=== PATIENT | male | born 1985 | race Two or more races ===

== ENCOUNTER 2021-04-09 12:21 | Inpatient (IN) | payer MEDICAID ==
[~2021-04-09] VITALS: Ht 172.7 cm; Wt 86.3 kg
[~2021-04-09 12:21] MED LIST: QUET100T PO
[2021-04-09] MEDS ORDERED: HALOPERIDOL LACTATE 5 MG/ML VIAL IM ONE (13:15)
[2021-04-09] MEDS ORDERED: LORazepam 2 MG/ML VIAL IM ONE (13:15)
[2021-04-09] MEDS ORDERED: DiphenhydrAMINE HCL 50 MG/ML VIAL IM ONE (13:15)
[2021-04-09] MEDS ORDERED: HydrOXYzine PAMOATE 50 MG CAPSULE PO PRN (14:00)
[2021-04-09] MEDS ORDERED: TUBERCULIN, PURIFIED PROTEIN DERIVATIVE 5 TU/0.1 ML SYRINGE ID ONE (14:00)
[2021-04-09] MEDS ORDERED: ACETAMINOPHEN 325 MG TABLET PO PRN (14:00)
[2021-04-09] MEDS ORDERED: OLANZapine 5 MG RAPDIS TABLET PO PRN (14:00)
[2021-04-09] MEDS ORDERED: LORazepam 2 MG TABLET PO PRN (14:00)
[2021-04-09] MEDS ORDERED: PALIPERIDONE PALMITATE 234 MG/1.5 ML SYRINGE IM ONE (14:00)
[2021-04-09] MEDS ORDERED: PROMETHAZINE HCL 25 MG TABLET PO PRN (14:00)
[2021-04-09] MEDS ORDERED: ZOLPIDEM TARTRATE 10 MG TABLET PO PRN (14:00)
[2021-04-09] MEDS ORDERED: LOPERAMIDE HCL 2 MG CAPSULE PO PRN (14:00)
[2021-04-09] MEDS ORDERED: GuaiFENesin/D-METHORPHAN [SUGAR-FREE] 200-20MG/10 ML SYRUP UDCUP PO PRN (14:00)
[2021-04-09] MEDS ORDERED: MAG HYDROX/AL HYDROX/SIMETH ES 30 ML SUSPENSION UDCUP PO PRN (14:00)
[2021-04-09] MEDS ORDERED: MAGNESIUM HYDROXIDE SUSPENSION 30 ML UDCUP PO PRN (14:00)
[2021-04-09 14:04] LABS: COVID AG,FIA SOURCE NASOPHARYNGEAL
[2021-04-09 15:30] LABS: BASOPHILS % (AUTO) 0.5 % (0.0-2.0); HEMATOCRIT 39.9 % (41-53); HEMOGLOBIN 12.9 g/dL (13.5-17.5); LYMPHOCYTES # (AUTO) 1.6 K/uL (1.0-4.8); LYMPHOCYTES % (AUTO) 24.7 % (22.0-44.0); MEAN CORPUSCULAR HGB CONC 32.4 G/dL (31.0-37.0); MEAN CORPUSCULAR VOLUME 86 fL (80-100); MONOCYTES # (AUTO) 0.4 K/uL (0.1-1.0); NEUTROPHILS # (AUTO) 4.3 K/uL (1.8-7.7); NEUTROPHILS % (AUTO) 66.8 % (40.0-70.0); PLATELET COUNT (AUTO) 306 K/uL (150-450); RED BLOOD CELL COUNT(AUTO) 4.62 MIL/uL (4.50-5.90); RED CELL DISTRIBUTION WIDTH 13.4 % (11.5-14.5)
[2021-04-09 15:40] LABS: ANION GAP 12 mmol/L (8-16); CALCIUM, TOTAL 8.4 mg/dL (8.8-10.5); CARBON DIOXIDE 24 mmol/L (22-29); CHLORIDE 107 mmol/L (98-107); CREATININE 0.72 mg/dL (0.60-1.30); GLOMERULAR FILTR. RATE CALC > 60 mL/min (>60); GLUCOSE,RANDOM 95 mg/dL (70-110); POTASSIUM 3.5 mmol/L (3.5-5.1); SODIUM SERUM 143 mmol/L (136-145); UREA NITROGEN, BLOOD 16 mg/dL (7-18)
[2021-04-09 15:46] LABS: ALANINE AMINOTRANSFERASE 29 U/L (12-78); ALBUMIN 3.7 g/dL (3.4-5.0); ALKALINE PHOSPHATASE 62 U/L (46-116); ASPARTATE AMINOTRANSFERASE 28 U/L (15-37); BILIRUBIN,TOTAL 1.2 mg/dL (0.1-1.0); TOTAL PROTEIN, SERUM 6.7 g/dL (6.4-8.2)
[2021-04-09] MEDS: THIAMINE 100 MG TABLET PO SCH (17:00)
[2021-04-09 19:01] VITALS: BP 117/84
[2021-04-09] MEDS ORDERED: OLANZapine 5 MG RAPDIS TABLET PO SCH (21:00)
[2021-04-09] MEDS: MELATONIN 5 MG TABLET PO SCH (22:14)
[2021-04-09] MEDS: DIVALPROEX SODIUM 500 MG ER TABLET PO SCH (22:14)
[2021-04-10] MEDS ORDERED: PALIPERIDONE PALMITATE 234 MG/1.5 ML SYRINGE IM ONE (09:00)
[2021-04-10] MEDS: NALTREXONE HCL 50 MG TABLET PO SCH (11:02)
[2021-04-10] MEDS: FOLIC ACID 1 MG TABLET PO SCH (11:05)
[2021-04-10] MEDS: THIAMINE 100 MG TABLET PO SCH ×2 (11:05→16:45)
[2021-04-10] MEDS: OMEGA-3/DHA/EPA/FISH OIL 1,000 MG CAPSULE PO SCH (11:05)
[2021-04-10] MEDS: MULTIVITAMINS WITH MINERALS, THERAPEUTIC TABLET PO SCH (11:06)
[2021-04-10] MEDS: MELATONIN 5 MG TABLET PO SCH (20:09)
[2021-04-10] MEDS: DIVALPROEX SODIUM 500 MG ER TABLET PO SCH (20:09)
[2021-04-11 07:36] LABS: CHOL/HDL RATIO 2.6 (4.2-7.3); FREE T4 (FREE THYROXINE) 1.09 ng/dL (0.76-1.46); THYROID STIMULATING HORMONE 0.36 uIU/mL (0.36-3.74)
[2021-04-11 08:32] VITALS: BP 162/82
[2021-04-11] MEDS: THIAMINE 100 MG TABLET PO SCH ×2 (10:11→16:26)
[2021-04-11] MEDS: MULTIVITAMINS WITH MINERALS, THERAPEUTIC TABLET PO SCH (10:11)
[2021-04-11] MEDS: OMEGA-3/DHA/EPA/FISH OIL 1,000 MG CAPSULE PO SCH (10:11)
[2021-04-11] MEDS: FOLIC ACID 1 MG TABLET PO SCH (10:11)
[2021-04-11] MEDS: NALTREXONE HCL 50 MG TABLET PO SCH (10:12)
[2021-04-11] MEDS: MELATONIN 5 MG TABLET PO SCH (20:23)
[2021-04-11] MEDS: DIVALPROEX SODIUM 500 MG ER TABLET PO SCH (20:24)
[2021-04-12] MEDS: NALTREXONE HCL 50 MG TABLET PO SCH (07:31)
[2021-04-12] MEDS: FOLIC ACID 1 MG TABLET PO SCH (07:31)
[2021-04-12] MEDS: OMEGA-3/DHA/EPA/FISH OIL 1,000 MG CAPSULE PO SCH (07:31)
[2021-04-12] MEDS: MULTIVITAMINS WITH MINERALS, THERAPEUTIC TABLET PO SCH (07:32)
[2021-04-12] MEDS: THIAMINE 100 MG TABLET PO SCH ×2 (07:32→16:09)
[2021-04-12 08:23] VITALS: BP 123/70
[2021-04-12] MEDS: DIVALPROEX SODIUM 500 MG ER TABLET PO SCH (21:00)
[2021-04-12] MEDS: MELATONIN 5 MG TABLET PO SCH (21:00)
[2021-04-13 08:26] VITALS: BP 113/65
[2021-04-13] MEDS: NALTREXONE HCL 50 MG TABLET PO SCH (09:00)
[2021-04-13] MEDS: THIAMINE 100 MG TABLET PO SCH (09:00)
[2021-04-13] MEDS: FOLIC ACID 1 MG TABLET PO SCH (09:00)
[2021-04-13] MEDS: OMEGA-3/DHA/EPA/FISH OIL 1,000 MG CAPSULE PO SCH (09:00)
[2021-04-13] MEDS: MULTIVITAMINS WITH MINERALS, THERAPEUTIC TABLET PO SCH (09:00)
[2021-04-13] MEDS ORDERED: OMEG-135 PO (09:53)
[2021-04-13] MEDS ORDERED: PALI117D IM (09:53)
[2021-04-13] MEDS ORDERED: DIVA-80 PO (09:53)
[2021-04-13] MEDS ORDERED: MELA5TAB40 PO (09:53)
[2021-04-13] MEDS ORDERED: NALT50TA PO (09:53)
[2021-04-13] MEDS ORDERED: PALIPERIDONE PALMITATE 156 MG/ML SYRINGE IM ONE (12:00)
[2021-04-14] MEDS ORDERED: PALIPERIDONE PALMITATE 156 MG/ML SYRINGE IM ONE (09:00)
== END 2021-04-13 14:20 | disposition home or self-care (01) | DRG 750 ==
LOC: EMS 12:21 → 3EC 15:19
PROVIDERS: ADMIT Psychiatry & Neurology Psychiatry; ATTEND Psychiatry & Neurology Psychiatry
DX: F20.0 Paranoid schizophrenia (principal); R45.850 Homicidal ideations; F12.10 Cannabis abuse, uncomplicated; Z20.822 Contact with and (suspected) exposure to COVID-19; F15.10 Other stimulant abuse, uncomplicated; F17.210 Nicotine dependence, cigarettes, uncomplicated; D64.9 Anemia, unspecified; J44.9 Chronic obstructive pulmonary disease, unspecified; Z55.9 Problems related to education and literacy, unspecified; Z59.9 Problem related to housing and economic circumstances, unspecified; Z91.19 Patient's noncompliance with other medical treatment and regimen; Z79.899 Other long term (current) drug therapy; Z65.3 Problems related to other legal circumstances; Z59.0 Homelessness
CPT/HCPCS: 80053; 80061; 80164; 84439; 84443; 85025; 87081; 99285; G0480; J1200; J1630; J2060; Q9967

== ENCOUNTER 2021-05-03 09:11 | Emergency (ER) | payer MEDICAID ==
[~2021-05-03] VITALS: Ht 175.3 cm; Wt 81.8 kg
[~2021-05-03 09:11] MED LIST changes: +DIVA-80 PO; +MELA5TAB40 PO; +NALT50TA PO; +OMEG-135 PO; +PALI117D IM; -QUET100T PO
[2021-05-03 09:38] LABS: COVID AG,FIA SOURCE NASOPHARYNGEAL
[2021-05-03 09:45] LABS: EOSINOPHILS % (AUTO) 1.8 % (1.0-6.0); HEMATOCRIT 42.2 % (41-53); LYMPHOCYTES # (AUTO) 1.4 K/uL (1.0-4.8); LYMPHOCYTES % (AUTO) 21.2 % (22.0-44.0); MEAN CORPUSCULAR HEMOGLOBIN 28.5 pg (26.0-34.0); MEAN CORPUSCULAR VOLUME 86 fL (80-100); MONOCYTES # (AUTO) 0.4 K/uL (0.1-1.0); MONOCYTES % (AUTO) 5.5 % (2.0-9.0); NEUTROPHILS # (AUTO) 4.7 K/uL (1.8-7.7); NEUTROPHILS % (AUTO) 70.5 % (40.0-70.0); PLATELET COUNT (AUTO) 383 K/uL (150-450); RED CELL DISTRIBUTION WIDTH 13.6 % (11.5-14.5)
[2021-05-03 09:53] LABS: ANION GAP 7 mmol/L (8-16); CALCIUM, TOTAL 8.6 mg/dL (8.8-10.5); CARBON DIOXIDE 30 mmol/L (22-29); CHLORIDE 103 mmol/L (98-107); CREATININE 0.92 mg/dL (0.60-1.30); GLOMERULAR FILTR. RATE CALC > 60 mL/min (>60); GLUCOSE,RANDOM 104 mg/dL (70-110); POTASSIUM 4.2 mmol/L (3.5-5.1); SODIUM SERUM 140 mmol/L (136-145); UREA NITROGEN, BLOOD 15 mg/dL (7-18)
[2021-05-03 09:59] LABS: ALANINE AMINOTRANSFERASE 28 U/L (12-78); ALBUMIN 3.9 g/dL (3.4-5.0); ALKALINE PHOSPHATASE 72 U/L (46-116); ASPARTATE AMINOTRANSFERASE 21 U/L (15-37); BILIRUBIN,TOTAL 1.2 mg/dL (0.1-1.0); TOTAL PROTEIN, SERUM 7.7 g/dL (6.4-8.2)
[2021-05-03 11:05] LABS: AMPHET/METH SCREEN,URINE POSITIVE (NEGATIVE); BARBITURATE SCREEN, URINE NEGATIVE (NEGATIVE); BENZODIAZEPINES SCREEN,URINE NEGATIVE (NEGATIVE); CANNABINOID SCREEN,URINE NEGATIVE (NEGATIVE); COCAINE SCREEN,URINE NEGATIVE (NEGATIVE); METHADONE SCREEN, URINE NEGATIVE (NEGATIVE); OPIATE SCREEN,URINE NEGATIVE (NEGATIVE); PHENCYCLIDINE SCREEN,URINE NEGATIVE (NEGATIVE)
[2021-05-03 11:58] VITALS: BP 122/68
== END 2021-05-03 12:12 | disposition home or self-care (01) ==
LOC: EMS 09:13
DX: F20.9 Schizophrenia, unspecified (principal); F15.10 Other stimulant abuse, uncomplicated; M25.511 Pain in right shoulder; F17.210 Nicotine dependence, cigarettes, uncomplicated; F14.90 Cocaine use, unspecified, uncomplicated; F19.90 Other psychoactive substance use, unspecified, uncomplicated; Z20.822 Contact with and (suspected) exposure to COVID-19
CPT/HCPCS: 36415; 73030; 80053; 80307; 85025; 87426; 99285; G0480

== ENCOUNTER 2021-07-01 22:34 | Emergency (ER) | payer MEDICAID ==
[~2021-07-01] VITALS: Ht 175.3 cm; Wt 86.4 kg
[2021-07-01 23:51] LABS: BASOPHILS % (AUTO) 0.7 % (0.0-2.0); EOSINOPHILS % (AUTO) 3.5 % (1.0-6.0); HEMATOCRIT 37.8 % (41-53); HEMOGLOBIN 12.9 g/dL (13.5-17.5); LYMPHOCYTES # (AUTO) 2.1 K/uL (1.0-4.8); LYMPHOCYTES % (AUTO) 34.8 % (22.0-44.0); MEAN CORPUSCULAR HEMOGLOBIN 28.5 pg (26.0-34.0); MEAN CORPUSCULAR HGB CONC 34.1 G/dL (31.0-37.0); MEAN CORPUSCULAR VOLUME 84 fL (80-100); MONOCYTES # (AUTO) 0.4 K/uL (0.1-1.0); NEUTROPHILS # (AUTO) 3.2 K/uL (1.8-7.7); PLATELET COUNT (AUTO) 367 K/uL (150-450); RED BLOOD CELL COUNT(AUTO) 4.53 MIL/uL (4.50-5.90); RED CELL DISTRIBUTION WIDTH 12.9 % (11.5-14.5)
[2021-07-02] LABS: ANION GAP 5 mmol/L (8-16); CALCIUM, TOTAL 8.7 mg/dL (8.8-10.5); CARBON DIOXIDE 29 mmol/L (22-29); CHLORIDE 107 mmol/L (98-107); CREATININE 0.88 mg/dL (0.60-1.30); GLOMERULAR FILTR. RATE CALC > 60 mL/min (>60); GLUCOSE,RANDOM 139 mg/dL (70-110); POTASSIUM 3.9 mmol/L (3.5-5.1); SODIUM SERUM 141 mmol/L (136-145); UREA NITROGEN, BLOOD 30 mg/dL (7-18)
[2021-07-02 00:06] LABS: ALANINE AMINOTRANSFERASE 22 U/L (12-78); ALBUMIN 3.6 g/dL (3.4-5.0); ALKALINE PHOSPHATASE 54 U/L (46-116); ASPARTATE AMINOTRANSFERASE 15 U/L (15-37); BILIRUBIN,TOTAL 0.8 mg/dL (0.1-1.0); TOTAL PROTEIN, SERUM 6.7 g/dL (6.4-8.2)
[2021-07-02 02:41] VITALS: BP 108/58
== END 2021-07-02 03:12 | disposition home or self-care (01) ==
LOC: EMS 22:36
DX: F19.10 Other psychoactive substance abuse, uncomplicated (principal); F17.210 Nicotine dependence, cigarettes, uncomplicated; F14.90 Cocaine use, unspecified, uncomplicated; F11.90 Opioid use, unspecified, uncomplicated; F15.90 Other stimulant use, unspecified, uncomplicated; F20.9 Schizophrenia, unspecified
CPT/HCPCS: 80053; 85025; 99285; G0480

== ENCOUNTER 2021-07-02 02:51 | Inpatient (IN) | payer MEDICAID ==
[~2021-07-02] VITALS: Ht 175.3 cm; Wt 80.0 kg
[2021-07-02] MEDS ORDERED: ZOLPIDEM TARTRATE 10 MG TABLET PO PRN (04:15)
[2021-07-02] MEDS ORDERED: MAGNESIUM HYDROXIDE SUSPENSION 30 ML UDCUP PO PRN (07:00)
[2021-07-02] MEDS ORDERED: ONDANSETRON HCL 4 MG TABLET PO PRN (07:00)
[2021-07-02] MEDS ORDERED: ALBUTEROL SULFATE HFA 90 MCG/PUFF 8 GM INHALER IH PRN (07:00)
[2021-07-02] MEDS ORDERED: GuaiFENesin/D-METHORPHAN [SUGAR-FREE] 200-20MG/10 ML SYRUP UDCUP PO PRN (07:00)
[2021-07-02] MEDS ORDERED: ACETAMINOPHEN 325 MG TABLET PO PRN (07:00)
[2021-07-02] MEDS ORDERED: PETROLATUM,WHITE 28 GM JELLY TP PRN (07:00)
[2021-07-02] MEDS ORDERED: IBUPROFEN 400 MG TABLET PO PRN (07:00)
[2021-07-02] MEDS ORDERED: LOPERAMIDE HCL 2 MG CAPSULE PO PRN (07:00)
[2021-07-02] MEDS ORDERED: MAG HYDROX/AL HYDROX/SIMETH ES 30 ML SUSPENSION UDCUP PO PRN (07:00)
[2021-07-02] MEDS ORDERED: CloNIDine HCL 0.1 MG TABLET PO PRN (07:00)
[2021-07-02] MEDS ORDERED: DOCUSATE SODIUM 100 MG CAPSULE PO PRN (07:00)
[2021-07-02 07:54] LABS: COVID AG,FIA SOURCE NASAL SWAB
[2021-07-02 08:08] LABS: APPEARANCE,URINE CLEAR (CLEAR); BILIRUBIN,URINE NEGATIVE (NEGATIVE); GLUCOSE, URINE (UA) NEGATIVE (NEGATIVE); KETONES,URINE NEGATIVE (NEGATIVE); LEUKOCYTE ESTERASE ,URINE NEGATIVE (NEGATIVE); NITRATE,URINE NEGATIVE (NEGATIVE); OCCULT BLOOD,URINE NEGATIVE (NEGATIVE); PROTEIN,URINE NEGATIVE (NEGATIVE); UROBILINOGEN,URINE 0.2 mg/dL (<=1.0)
[2021-07-02 11:51] LABS: AMPHET/METH SCREEN,URINE POSITIVE (NEGATIVE); BARBITURATE SCREEN, URINE NEGATIVE (NEGATIVE); BENZODIAZEPINES SCREEN,URINE NEGATIVE (NEGATIVE); CANNABINOID SCREEN,URINE NEGATIVE (NEGATIVE); COCAINE SCREEN,URINE NEGATIVE (NEGATIVE); METHADONE SCREEN, URINE NEGATIVE (NEGATIVE); OPIATE SCREEN,URINE NEGATIVE (NEGATIVE)
[2021-07-02 11:52] LABS: PHENCYCLIDINE SCREEN,URINE NEGATIVE (NEGATIVE)
[2021-07-02] MEDS: HALOPERIDOL 5 MG TABLET PO PRN (18:25)
[2021-07-02] MEDS: LORazepam 2 MG TABLET PO PRN (18:25)
[2021-07-02 19:04] VITALS: BP 127/77
[2021-07-02] MEDS: OMEGA-3/DHA/EPA/FISH OIL 1,000 MG CAPSULE PO SCH (19:40)
[2021-07-02] MEDS ORDERED: INFLUENZA VIRUS VACCINE QVS 2021-22 (6MO+)/PF 60 MCG/0.5 ML SYRINGE IM. ONE (20:00)
[2021-07-02] MEDS: MELATONIN 5 MG TABLET PO SCH (20:20)
[2021-07-03 06:48] LABS: CHOL/HDL RATIO 2.9 (4.2-7.3)
[2021-07-03] MEDS: OMEGA-3/DHA/EPA/FISH OIL 1,000 MG CAPSULE PO SCH (09:14)
[2021-07-03] MEDS: NALTREXONE HCL 50 MG TABLET PO SCH (11:00)
[2021-07-03] MEDS: DIVALPROEX SODIUM 500 MG ER TABLET PO SCH ×2 (11:00→20:53)
[2021-07-03] MEDS: RisperiDONE 2 MG TABLET PO SCH ×2 (11:00→16:41)
[2021-07-03] MEDS: MELATONIN 5 MG TABLET PO SCH (20:53)
[2021-07-04 08:32] VITALS: BP 123/65
[2021-07-04] MEDS: DIVALPROEX SODIUM 500 MG ER TABLET PO SCH ×2 (09:00→20:50)
[2021-07-04] MEDS: NALTREXONE HCL 50 MG TABLET PO SCH (09:00)
[2021-07-04] MEDS: RisperiDONE 2 MG TABLET PO SCH ×2 (09:00→16:23)
[2021-07-04] MEDS: OMEGA-3/DHA/EPA/FISH OIL 1,000 MG CAPSULE PO SCH (09:30)
[2021-07-04] MEDS: LORazepam 2 MG TABLET PO PRN ×2 (09:30→16:23)
[2021-07-04] MEDS: MELATONIN 5 MG TABLET PO SCH (20:50)
[2021-07-05 08:57] VITALS: BP 105/68
[2021-07-05] MEDS: NALTREXONE HCL 50 MG TABLET PO SCH (09:00)
[2021-07-05] MEDS: RisperiDONE 2 MG TABLET PO SCH ×2 (09:00→17:00)
[2021-07-05] MEDS: DIVALPROEX SODIUM 500 MG ER TABLET PO SCH ×2 (09:00→21:00)
[2021-07-05] MEDS: OMEGA-3/DHA/EPA/FISH OIL 1,000 MG CAPSULE PO SCH (11:14)
[2021-07-05] MEDS: LORazepam 2 MG TABLET PO PRN ×2 (14:03→20:41)
[2021-07-05 20:41] VITALS: BP 115/67
[2021-07-05] MEDS: MELATONIN 5 MG TABLET PO SCH (21:00)
[2021-07-06] MEDS: DIVALPROEX SODIUM 500 MG ER TABLET PO SCH ×4 (08:38→21:00)
[2021-07-06] MEDS: OMEGA-3/DHA/EPA/FISH OIL 1,000 MG CAPSULE PO SCH ×2 (08:38→11:34)
[2021-07-06] MEDS: RisperiDONE 2 MG TABLET PO SCH ×3 (08:38→17:19)
[2021-07-06] MEDS: NALTREXONE HCL 50 MG TABLET PO SCH ×2 (08:38→11:34)
[2021-07-06 09:39] VITALS: BP 94/68
[2021-07-06] MEDS: NICOTINE 14 MG/24 HOUR PATCH TD PRN (11:34)
[2021-07-06] MEDS: LORazepam 2 MG TABLET PO PRN (11:35)
[2021-07-06 16:21] VITALS: BP 123/76
[2021-07-06] MEDS: MELATONIN 5 MG TABLET PO SCH (21:00)
[2021-07-07] MEDS: LORazepam 2 MG TABLET PO PRN ×2 (07:40→17:25)
[2021-07-07] MEDS: HALOPERIDOL 5 MG TABLET PO PRN (07:40)
[2021-07-07 08:00] VITALS: BP 123/74
[2021-07-07] MEDS: NALTREXONE HCL 50 MG TABLET PO SCH (08:21)
[2021-07-07] MEDS: DIVALPROEX SODIUM 500 MG ER TABLET PO SCH ×2 (08:21→20:14)
[2021-07-07] MEDS: OMEGA-3/DHA/EPA/FISH OIL 1,000 MG CAPSULE PO SCH (08:21)
[2021-07-07] MEDS: RisperiDONE 2 MG TABLET PO SCH ×2 (08:21→16:17)
[2021-07-07] MEDS: NICOTINE 14 MG/24 HOUR PATCH TD PRN (08:22)
[2021-07-07 16:41] VITALS: BP 120/75
[2021-07-07] MEDS: MELATONIN 5 MG TABLET PO SCH (20:13)
[2021-07-08 08:00] LABS: COVID AG,FIA SOURCE NASAL SWAB
[2021-07-08 08:36] VITALS: BP 144/90
[2021-07-08] MEDS: LORazepam 2 MG TABLET PO PRN ×2 (08:38→18:37)
[2021-07-08] MEDS: DIVALPROEX SODIUM 500 MG ER TABLET PO SCH ×2 (08:38→20:50)
[2021-07-08] MEDS: OMEGA-3/DHA/EPA/FISH OIL 1,000 MG CAPSULE PO SCH (08:38)
[2021-07-08] MEDS: NALTREXONE HCL 50 MG TABLET PO SCH (08:39)
[2021-07-08] MEDS: RisperiDONE 2 MG TABLET PO SCH ×2 (08:39→16:22)
[2021-07-08 16:00] VITALS: BP 115/65
[2021-07-08] MEDS: MELATONIN 5 MG TABLET PO SCH (20:50)
[2021-07-09] MEDS: HALOPERIDOL 5 MG TABLET PO PRN ×2 (07:55→13:13)
[2021-07-09] MEDS: OMEGA-3/DHA/EPA/FISH OIL 1,000 MG CAPSULE PO SCH (07:55)
[2021-07-09] MEDS: DIVALPROEX SODIUM 500 MG ER TABLET PO SCH (07:55)
[2021-07-09] MEDS: NALTREXONE HCL 50 MG TABLET PO SCH (07:56)
[2021-07-09] MEDS: LORazepam 2 MG TABLET PO PRN ×2 (07:56→13:13)
[2021-07-09] MEDS: RisperiDONE 2 MG TABLET PO SCH (07:56)
[2021-07-09] MEDS ORDERED: DIVA-80 PO ×2 (11:31)
[2021-07-09] MEDS ORDERED: RISP2TAB45 PO (11:32)
== END 2021-07-09 14:05 | disposition home or self-care (01) | DRG 750 ==
LOC: EMS 02:53 → 3EC 17:09
PROVIDERS: ADMIT Psychiatry & Neurology Child & Adolescent Psychiatry; ATTEND Psychiatry & Neurology Child & Adolescent Psychiatry
DX: F25.0 Schizoaffective disorder, bipolar type (principal); E86.0 Dehydration; F15.10 Other stimulant abuse, uncomplicated; F17.210 Nicotine dependence, cigarettes, uncomplicated; F41.9 Anxiety disorder, unspecified; Z91.19 Patient's noncompliance with other medical treatment and regimen
CPT/HCPCS: 80061; 81003; 99285; Q9967

== ENCOUNTER 2021-07-13 00:56 | Inpatient (IN) | payer MEDICAID ==
[~2021-07-13] VITALS: Ht 175.3 cm; Wt 75.3 kg
[~2021-07-13 00:56] MED LIST changes: -OMEG-135 PO; -PALI117D IM; +RISP2TAB45 PO
[2021-07-13] MEDS ORDERED: LORazepam 2 MG TABLET PO PRN (02:15)
[2021-07-13] MEDS ORDERED: HALOPERIDOL 5 MG TABLET PO PRN (02:15)
[2021-07-13] MEDS ORDERED: ZOLPIDEM TARTRATE 10 MG TABLET PO PRN (02:15)
[2021-07-13 03:21] LABS: COVID AG,FIA SOURCE NASOPHARYNGEAL
[2021-07-13 03:25] LABS: BASOPHILS % (AUTO) 0.7 % (0.0-2.0); EOSINOPHILS % (AUTO) 2.1 % (1.0-6.0); HEMATOCRIT 39.5 % (41-53); HEMOGLOBIN 13.4 g/dL (13.5-17.5); LYMPHOCYTES # (AUTO) 1.8 K/uL (1.0-4.8); LYMPHOCYTES % (AUTO) 24.8 % (22.0-44.0); MEAN CORPUSCULAR HEMOGLOBIN 28.4 pg (26.0-34.0); MEAN CORPUSCULAR HGB CONC 33.9 G/dL (31.0-37.0); MEAN CORPUSCULAR VOLUME 84 fL (80-100); MONOCYTES # (AUTO) 0.5 K/uL (0.1-1.0); MONOCYTES % (AUTO) 7.6 % (2.0-9.0); NEUTROPHILS # (AUTO) 4.7 K/uL (1.8-7.7); NEUTROPHILS % (AUTO) 64.8 % (40.0-70.0); PLATELET COUNT (AUTO) 304 K/uL (150-450); RED CELL DISTRIBUTION WIDTH 13.1 % (11.5-14.5)
[2021-07-13 03:28] LABS: APPEARANCE,URINE CLEAR (CLEAR); BILIRUBIN,URINE NEGATIVE (NEGATIVE); GLUCOSE, URINE (UA) NEGATIVE (NEGATIVE); KETONES,URINE TRACE mg/dL (NEGATIVE); LEUKOCYTE ESTERASE ,URINE NEGATIVE (NEGATIVE); NITRATE,URINE NEGATIVE (NEGATIVE); OCCULT BLOOD,URINE NEGATIVE (NEGATIVE); PH,URINE 6.5 (5.0-8.0); PROTEIN,URINE NEGATIVE (NEGATIVE)
[2021-07-13 03:33] LABS: AMPHET/METH SCREEN,URINE POSITIVE (NEGATIVE); BARBITURATE SCREEN, URINE NEGATIVE (NEGATIVE); BENZODIAZEPINES SCREEN,URINE NEGATIVE (NEGATIVE); CANNABINOID SCREEN,URINE NEGATIVE (NEGATIVE); COCAINE SCREEN,URINE NEGATIVE (NEGATIVE); METHADONE SCREEN, URINE NEGATIVE (NEGATIVE); OPIATE SCREEN,URINE NEGATIVE (NEGATIVE)
[2021-07-13 03:34] LABS: PHENCYCLIDINE SCREEN,URINE NEGATIVE (NEGATIVE)
[2021-07-13 03:34] LABS: ANION GAP 7 mmol/L (8-16); CALCIUM, TOTAL 9.1 mg/dL (8.8-10.5); CARBON DIOXIDE 31 mmol/L (22-29); CHLORIDE 105 mmol/L (98-107); CREATININE 0.97 mg/dL (0.60-1.30); GLOMERULAR FILTR. RATE CALC > 60 mL/min (>60); GLUCOSE,RANDOM 112 mg/dL (70-110); SODIUM SERUM 143 mmol/L (136-145); UREA NITROGEN, BLOOD 26 mg/dL (7-18)
[2021-07-13 03:39] LABS: ALANINE AMINOTRANSFERASE 26 U/L (12-78); ALKALINE PHOSPHATASE 66 U/L (46-116); ASPARTATE AMINOTRANSFERASE 21 U/L (15-37); TOTAL PROTEIN, SERUM 7.4 g/dL (6.4-8.2)
[2021-07-13] MEDS ORDERED: ALBUTEROL SULFATE HFA 90 MCG/PUFF 8 GM INHALER IH PRN (09:45)
[2021-07-13] MEDS ORDERED: DOCUSATE SODIUM 100 MG CAPSULE PO PRN (09:45)
[2021-07-13] MEDS ORDERED: MAGNESIUM HYDROXIDE SUSPENSION 30 ML UDCUP PO PRN (09:45)
[2021-07-13] MEDS ORDERED: GuaiFENesin/D-METHORPHAN [SUGAR-FREE] 200-20MG/10 ML SYRUP UDCUP PO PRN (09:45)
[2021-07-13] MEDS ORDERED: IBUPROFEN 400 MG TABLET PO PRN (09:45)
[2021-07-13] MEDS ORDERED: LOPERAMIDE HCL 2 MG CAPSULE PO PRN (09:45)
[2021-07-13] MEDS ORDERED: CloNIDine HCL 0.1 MG TABLET PO PRN (09:45)
[2021-07-13] MEDS ORDERED: ONDANSETRON HCL 4 MG TABLET PO PRN (09:45)
[2021-07-13] MEDS ORDERED: MAG HYDROX/AL HYDROX/SIMETH ES 30 ML SUSPENSION UDCUP PO PRN (09:45)
[2021-07-13] MEDS ORDERED: NICOTINE 14 MG/24 HOUR PATCH TD PRN (09:45)
[2021-07-13] MEDS ORDERED: PETROLATUM,WHITE 28 GM JELLY TP PRN (09:45)
[2021-07-13] MEDS ORDERED: ACETAMINOPHEN 325 MG TABLET PO PRN (09:45)
[2021-07-13 14:07] VITALS: BP 131/66
[2021-07-13 16:03] VITALS: BP 126/62
[2021-07-13] MEDS: RisperiDONE 2 MG TABLET PO SCH (16:31)
[2021-07-13] MEDS: MELATONIN 5 MG TABLET PO SCH (20:44)
[2021-07-13] MEDS: DIVALPROEX SODIUM 500 MG DR TABLET PO SCH (20:45)
[2021-07-14 04:02] VITALS: BP 124/68
[2021-07-14 07:55] LABS: CHOL/HDL RATIO 2.7 (4.2-7.3)
[2021-07-14 08:01] VITALS: BP 108/62
[2021-07-14] MEDS: NALTREXONE HCL 50 MG TABLET PO SCH (08:52)
[2021-07-14] MEDS: DIVALPROEX SODIUM 500 MG DR TABLET PO SCH ×2 (08:53→20:37)
[2021-07-14] MEDS: RisperiDONE 2 MG TABLET PO SCH ×2 (08:53→16:18)
[2021-07-14] MEDS ORDERED: DIVALPROEX SODIUM 500 MG DR TABLET PO SCH (09:00)
[2021-07-14] MEDS: MELATONIN 5 MG TABLET PO SCH (20:38)
[2021-07-15 01:13] VITALS: BP 148/94
[2021-07-15 08:00] VITALS: BP 117/64
[2021-07-15 08:02] LABS: HEMOGLOBIN A1C 5.8 % (3.8-5.6)
[2021-07-15] MEDS: DIVALPROEX SODIUM 500 MG DR TABLET PO SCH ×2 (08:29→21:00)
[2021-07-15] MEDS: RisperiDONE 2 MG TABLET PO SCH ×2 (08:30→16:58)
[2021-07-15] MEDS: NALTREXONE HCL 50 MG TABLET PO SCH (08:30)
[2021-07-15 09:57] LABS: THYROID STIMULATING HORMONE 0.74 uIU/mL (0.36-3.74)
[2021-07-15 16:17] VITALS: BP 115/65
[2021-07-15] MEDS: MELATONIN 5 MG TABLET PO SCH (21:00)
[2021-07-16 01:44] VITALS: BP 117/79
[2021-07-16 08:13] VITALS: BP 113/75
[2021-07-16] MEDS: NALTREXONE HCL 50 MG TABLET PO SCH (09:00)
[2021-07-16] MEDS: RisperiDONE 2 MG TABLET PO SCH (09:00)
[2021-07-16] MEDS: DIVALPROEX SODIUM 500 MG DR TABLET PO SCH (09:00)
== END 2021-07-16 13:20 | disposition left against medical advice (07) | DRG 750 ==
LOC: EMS 00:57 → B2S 05:01
PROVIDERS: ADMIT Psychiatry & Neurology Child & Adolescent Psychiatry; ATTEND Psychiatry & Neurology Child & Adolescent Psychiatry
DX: F20.9 Schizophrenia, unspecified (principal); R45.851 Suicidal ideations; F10.10 Alcohol abuse, uncomplicated; F17.210 Nicotine dependence, cigarettes, uncomplicated; R03.0 Elevated blood-pressure reading, without diagnosis of hypertension; K59.00 Constipation, unspecified; D64.9 Anemia, unspecified; Z53.29 Procedure and treatment not carried out because of patient's decision for other reasons; Z20.822 Contact with and (suspected) exposure to COVID-19; F15.10 Other stimulant abuse, uncomplicated; Z71.41 Alcohol abuse counseling and surveillance of alcoholic; Z71.51 Drug abuse counseling and surveillance of drug abuser; Z91.51 Personal history of suicidal behavior; Z79.899 Other long term (current) drug therapy
CPT/HCPCS: 80053; 80061; 81003; 83036; 84443; 85025; 87081; 99285; G0480; Q9967

== ENCOUNTER 2021-08-29 08:11 | Inpatient (IN) | payer MEDICAID ==
[~2021-08-29] VITALS: Ht 177.8 cm; Wt 84.1 kg
[2021-08-29] MEDS ORDERED: LORazepam 2 MG/ML VIAL IM ONE (08:30)
[2021-08-29] MEDS ORDERED: HALOPERIDOL LACTATE 5 MG/ML VIAL IM ONE (08:30)
[2021-08-29] MEDS ORDERED: DiphenhydrAMINE HCL 50 MG/ML VIAL IM ONE (08:30)
[2021-08-29 08:52] LABS: COVID AG,FIA SOURCE NASOPHARYNGEAL
[2021-08-29 09:05] LABS: AMPHET/METH SCREEN,URINE POSITIVE (NEGATIVE); BARBITURATE SCREEN, URINE NEGATIVE (NEGATIVE); BENZODIAZEPINES SCREEN,URINE NEGATIVE (NEGATIVE); CANNABINOID SCREEN,URINE NEGATIVE (NEGATIVE); COCAINE SCREEN,URINE NEGATIVE (NEGATIVE); METHADONE SCREEN, URINE NEGATIVE (NEGATIVE); OPIATE SCREEN,URINE NEGATIVE (NEGATIVE)
[2021-08-29 09:08] LABS: PHENCYCLIDINE SCREEN,URINE NEGATIVE (NEGATIVE)
[2021-08-29 09:27] LABS: BASOPHILS % (AUTO) 0.6 % (0.0-2.0); EOSINOPHILS % (AUTO) 1.4 % (1.0-6.0); LYMPHOCYTES # (AUTO) 1.2 K/uL (1.0-4.8); LYMPHOCYTES % (AUTO) 22.8 % (22.0-44.0); MEAN CORPUSCULAR HEMOGLOBIN 28.1 pg (26.0-34.0); MEAN CORPUSCULAR HGB CONC 33.3 G/dL (31.0-37.0); MEAN CORPUSCULAR VOLUME 84 fL (80-100); MONOCYTES # (AUTO) 0.4 K/uL (0.1-1.0); MONOCYTES % (AUTO) 7.1 % (2.0-9.0); NEUTROPHILS # (AUTO) 3.5 K/uL (1.8-7.7); NEUTROPHILS % (AUTO) 68.1 % (40.0-70.0); PLATELET COUNT (AUTO) 332 K/uL (150-450); RED BLOOD CELL COUNT(AUTO) 4.63 MIL/uL (4.50-5.90); RED CELL DISTRIBUTION WIDTH 14.1 % (11.5-14.5)
[2021-08-29 09:38] LABS: ANION GAP 7 mmol/L (8-16); CALCIUM, TOTAL 8.5 mg/dL (8.8-10.5); CARBON DIOXIDE 27 mmol/L (22-29); CHLORIDE 104 mmol/L (98-107); CREATININE 0.87 mg/dL (0.60-1.30); GLOMERULAR FILTR. RATE CALC > 60 mL/min (>60); GLUCOSE,RANDOM 116 mg/dL (70-110); POTASSIUM 3.9 mmol/L (3.5-5.1); SODIUM SERUM 138 mmol/L (136-145); UREA NITROGEN, BLOOD 24 mg/dL (7-18)
[2021-08-29 09:43] LABS: ALANINE AMINOTRANSFERASE 27 U/L (12-78); ALBUMIN 3.7 g/dL (3.4-5.0); ALKALINE PHOSPHATASE 60 U/L (46-116); ASPARTATE AMINOTRANSFERASE 27 U/L (15-37); BILIRUBIN,TOTAL 0.7 mg/dL (0.1-1.0); TOTAL PROTEIN, SERUM 7.2 g/dL (6.4-8.2)
[2021-08-29] MEDS ORDERED: LORazepam 2 MG TABLET PO PRN (12:00)
[2021-08-29] MEDS ORDERED: ZOLPIDEM TARTRATE 10 MG TABLET PO PRN (12:00)
[2021-08-29] MEDS ORDERED: HALOPERIDOL 5 MG TABLET PO PRN (12:00)
[2021-08-29 14:29] VITALS: BP 131/87
[2021-08-29] MEDS ORDERED: CloNIDine HCL 0.1 MG TABLET PO PRN (14:45)
[2021-08-29] MEDS ORDERED: BENZOCAINE/MENTHOL LOZENGE PO PRN (14:45)
[2021-08-29] MEDS ORDERED: MAGNESIUM HYDROXIDE SUSPENSION 30 ML UDCUP PO PRN (14:45)
[2021-08-29] MEDS ORDERED: PETROLATUM,WHITE 28 GM JELLY TP PRN (14:45)
[2021-08-29] MEDS ORDERED: BACITRACIN 28 GM OINTMENT TP PRN (14:45)
[2021-08-29] MEDS ORDERED: ALBUTEROL SULFATE HFA 90 MCG/PUFF 8 GM INHALER IH PRN (14:45)
[2021-08-29] MEDS ORDERED: MAG HYDROX/AL HYDROX/SIMETH ES 30 ML SUSPENSION UDCUP PO PRN (14:45)
[2021-08-29] MEDS ORDERED: OMEPRAZOLE 20 MG CAPSULE PO PRN (14:45)
[2021-08-29] MEDS ORDERED: ONDANSETRON HCL 4 MG TABLET PO PRN (14:45)
[2021-08-29] MEDS ORDERED: ACETAMINOPHEN 325 MG TABLET PO PRN (14:45)
[2021-08-29] MEDS ORDERED: LOPERAMIDE HCL 2 MG CAPSULE PO PRN (14:45)
[2021-08-29] MEDS ORDERED: IBUPROFEN 600 MG TABLET PO PRN (14:45)
[2021-08-29] MEDS ORDERED: DOCUSATE SODIUM 100 MG CAPSULE PO PRN (14:45)
[2021-08-30 09:40] VITALS: BP 110/73
[2021-08-30 16:07] VITALS: BP 124/73
[2021-08-30] MEDS: RisperiDONE 2 MG TABLET PO SCH (16:51)
[2021-08-30] MEDS: DIVALPROEX SODIUM 500 MG ER TABLET PO SCH (16:51)
[2021-08-31 08:23] VITALS: BP 126/75
[2021-08-31] MEDS: RisperiDONE 2 MG TABLET PO SCH ×2 (09:00→16:30)
[2021-08-31] MEDS: DIVALPROEX SODIUM 500 MG ER TABLET PO SCH ×2 (09:00→16:30)
[2021-08-31 16:16] VITALS: BP 114/68
[2021-09-01 01:11] VITALS: BP 117/82
[2021-09-01] MEDS: DIVALPROEX SODIUM 500 MG ER TABLET PO SCH (08:52)
[2021-09-01] MEDS: RisperiDONE 2 MG TABLET PO SCH (08:52)
[2021-09-01 08:58] VITALS: BP 123/73
[2021-09-01] MEDS ORDERED: DIVA-80 PO (10:37)
[2021-09-01] MEDS ORDERED: RISP2TAB86 PO (10:37)
== END 2021-09-01 13:49 | disposition home or self-care (01) | DRG 750 ==
LOC: EMS 08:16 → B2S 13:16
PROVIDERS: ADMIT Psychiatry & Neurology Psychiatry; ATTEND Psychiatry & Neurology Psychiatry
DX: F20.0 Paranoid schizophrenia (principal); F19.10 Other psychoactive substance abuse, uncomplicated; G47.00 Insomnia, unspecified; Z20.822 Contact with and (suspected) exposure to COVID-19; F31.9 Bipolar disorder, unspecified; K59.00 Constipation, unspecified; Z72.0 Tobacco use; Z71.6 Tobacco abuse counseling
CPT/HCPCS: 80053; 85025; 99291; G0480; J1200; J1630; J2060

== ENCOUNTER 2021-09-14 12:29 | Inpatient (IN) | payer MEDICAID ==
[~2021-09-14] VITALS: Ht 170.2 cm; Wt 79.5 kg
[~2021-09-14 12:29] MED LIST changes: -MELA5TAB40 PO; -NALT50TA PO; -RISP2TAB45 PO; +RISP2TAB86 PO
[2021-09-14] MEDS ORDERED: ZOLPIDEM TARTRATE 10 MG TABLET PO PRN (13:30)
[2021-09-14] MEDS ORDERED: HALOPERIDOL 5 MG TABLET PO PRN (13:30)
[2021-09-14] MEDS ORDERED: LORazepam 2 MG TABLET PO PRN (13:30)
[2021-09-14] MEDS: DiphenhydrAMINE HCL 50 MG/ML VIAL IM ONE ×2 (13:45→14:30)
[2021-09-14] MEDS: LORazepam 2 MG/ML VIAL IM ONE ×2 (13:45→14:30)
[2021-09-14] MEDS: HALOPERIDOL LACTATE 5 MG/ML VIAL IM ONE ×2 (13:45→14:30)
[2021-09-14 14:10] LABS: BASOPHILS % (AUTO) 0.5 % (0.0-2.0); EOSINOPHILS % (AUTO) 1.2 % (1.0-6.0); HEMATOCRIT 38.9 % (41-53); HEMOGLOBIN 13.1 g/dL (13.5-17.5); LYMPHOCYTES # (AUTO) 1.5 K/uL (1.0-4.8); LYMPHOCYTES % (AUTO) 22.6 % (22.0-44.0); MEAN CORPUSCULAR HEMOGLOBIN 28.4 pg (26.0-34.0); MEAN CORPUSCULAR HGB CONC 33.5 G/dL (31.0-37.0); MEAN CORPUSCULAR VOLUME 85 fL (80-100); MONOCYTES # (AUTO) 0.5 K/uL (0.1-1.0); MONOCYTES % (AUTO) 7.5 % (2.0-9.0); NEUTROPHILS # (AUTO) 4.6 K/uL (1.8-7.7); NEUTROPHILS % (AUTO) 68.2 % (40.0-70.0); PLATELET COUNT (AUTO) 317 K/uL (150-450); RED CELL DISTRIBUTION WIDTH 13.3 % (11.5-14.5)
[2021-09-14 14:23] LABS: ANION GAP 12 mmol/L (8-16); CALCIUM, TOTAL 8.8 mg/dL (8.8-10.5); CARBON DIOXIDE 23 mmol/L (22-29); CHLORIDE 106 mmol/L (98-107); CREATININE 0.88 mg/dL (0.60-1.30); GLOMERULAR FILTR. RATE CALC > 60 mL/min (>60); GLUCOSE,RANDOM 97 mg/dL (70-110); POTASSIUM 3.8 mmol/L (3.5-5.1); SODIUM SERUM 141 mmol/L (136-145); UREA NITROGEN, BLOOD 23 mg/dL (7-18)
[2021-09-14 14:29] LABS: ALANINE AMINOTRANSFERASE 32 U/L (12-78); ALKALINE PHOSPHATASE 61 U/L (46-116); ASPARTATE AMINOTRANSFERASE 37 U/L (15-37); BILIRUBIN,TOTAL 1.1 mg/dL (0.1-1.0); TOTAL PROTEIN, SERUM 7.4 g/dL (6.4-8.2)
[2021-09-14 15:38] LABS: COVID AG,FIA SOURCE NASOPHARYNGEAL
[2021-09-14 17:45] VITALS: BP 134/96
[2021-09-15 00:06] VITALS: BP 118/67
[2021-09-15 08:25] VITALS: BP 101/65
[2021-09-15] MEDS ORDERED: LORazepam 2 MG/ML VIAL ONE ×2 (11:59→12:00)
[2021-09-15] MEDS ORDERED: HALOPERIDOL LACTATE 5 MG/ML VIAL ONE (12:01)
[2021-09-15] MEDS ORDERED: DiphenhydrAMINE HCL 50 MG/ML VIAL ONE (12:02)
[2021-09-15 16:01] VITALS: BP 138/72
[2021-09-15] MEDS: DIVALPROEX SODIUM 500 MG DR TABLET PO SCH (17:00)
[2021-09-15] MEDS: RisperiDONE 3 MG TABLET PO SCH (17:00)
[2021-09-15] MEDS ORDERED: MAG HYDROX/AL HYDROX/SIMETH ES 30 ML SUSPENSION UDCUP PO PRN (18:15)
[2021-09-15] MEDS ORDERED: ACETAMINOPHEN 325 MG TABLET PO PRN (18:15)
[2021-09-15] MEDS ORDERED: ONDANSETRON HCL 4 MG TABLET PO PRN (18:15)
[2021-09-15] MEDS ORDERED: MAGNESIUM HYDROXIDE SUSPENSION 30 ML UDCUP PO PRN (18:15)
[2021-09-15] MEDS ORDERED: DOCUSATE SODIUM 100 MG CAPSULE PO PRN (18:15)
[2021-09-15] MEDS ORDERED: CloNIDine HCL 0.1 MG TABLET PO PRN (18:15)
[2021-09-15] MEDS ORDERED: OMEPRAZOLE 20 MG CAPSULE PO PRN (18:15)
[2021-09-15] MEDS ORDERED: BENZOCAINE/MENTHOL LOZENGE PO PRN (18:15)
[2021-09-15] MEDS ORDERED: LOPERAMIDE HCL 2 MG CAPSULE PO PRN (18:15)
[2021-09-15] MEDS ORDERED: ALBUTEROL SULFATE HFA 90 MCG/PUFF 8 GM INHALER IH PRN (18:15)
[2021-09-15] MEDS ORDERED: BACITRACIN 28 GM OINTMENT TP PRN (18:15)
[2021-09-15] MEDS ORDERED: PETROLATUM,WHITE 28 GM JELLY TP PRN (18:15)
[2021-09-15] MEDS ORDERED: IBUPROFEN 600 MG TABLET PO PRN (18:15)
[2021-09-16 03:17] VITALS: BP 131/68
[2021-09-16 08:20] VITALS: BP 128/65
[2021-09-16] MEDS: RisperiDONE 3 MG TABLET PO SCH ×2 (08:31→16:55)
[2021-09-16] MEDS: DIVALPROEX SODIUM 500 MG DR TABLET PO SCH ×2 (08:31→16:55)
[2021-09-16 16:10] VITALS: BP 116/72
[2021-09-17 05:30] VITALS: BP 114/62
[2021-09-17] MEDS: RisperiDONE 3 MG TABLET PO SCH ×2 (09:00→16:55)
[2021-09-17] MEDS: DIVALPROEX SODIUM 500 MG DR TABLET PO SCH ×2 (09:00→16:55)
[2021-09-17 17:00] VITALS: BP 114/76
[2021-09-18 08:00] VITALS: BP 116/72
[2021-09-18] MEDS: RisperiDONE 3 MG TABLET PO SCH ×2 (08:08→17:00)
[2021-09-18] MEDS: DIVALPROEX SODIUM 500 MG DR TABLET PO SCH ×2 (08:08→17:00)
[2021-09-18 16:26] VITALS: BP 118/73
[2021-09-19 04:16] VITALS: BP 119/78
[2021-09-19] MEDS: RisperiDONE 3 MG TABLET PO SCH ×2 (08:22→16:56)
[2021-09-19] MEDS: DIVALPROEX SODIUM 500 MG DR TABLET PO SCH ×2 (08:22→16:55)
[2021-09-19 09:55] VITALS: BP 120/76
[2021-09-19 16:05] VITALS: BP 111/68
[2021-09-19] MEDS ORDERED: DIVA-112 PO (16:56)
[2021-09-19] MEDS ORDERED: RISP3TAB63 PO (16:56)
== END 2021-09-19 17:23 | disposition home or self-care (01) | DRG 750 ==
LOC: EMS 12:29 → B3A 16:22
PROVIDERS: ADMIT Psychiatry & Neurology Psychiatry; ATTEND Psychiatry & Neurology Psychiatry
DX: F25.9 Schizoaffective disorder, unspecified (principal); Z91.14 Patient's other noncompliance with medication regimen; F10.10 Alcohol abuse, uncomplicated; F12.10 Cannabis abuse, uncomplicated; F32.A Depression, unspecified; F41.9 Anxiety disorder, unspecified; G47.00 Insomnia, unspecified; K59.00 Constipation, unspecified; Z71.6 Tobacco abuse counseling; Z72.0 Tobacco use
CPT/HCPCS: 80053; 85025; 87081; 99285; G0480; J1200; J1630; J2060

== ENCOUNTER 2021-10-01 19:29 | Emergency (ER) | payer MEDICAID ==
[~2021-10-01] VITALS: Ht 177.8 cm; Wt 86.4 kg
[2021-10-01 20:13] LABS: BASOPHILS % (AUTO) 0.5 % (0.0-2.0); EOSINOPHILS % (AUTO) 1.1 % (1.0-6.0); HEMOGLOBIN 12.7 g/dL (13.5-17.5); LYMPHOCYTES # (AUTO) 1.3 K/uL (1.0-4.8); LYMPHOCYTES % (AUTO) 14.9 % (22.0-44.0); MEAN CORPUSCULAR HEMOGLOBIN 28.6 pg (26.0-34.0); MEAN CORPUSCULAR HGB CONC 34.3 G/dL (31.0-37.0); MEAN CORPUSCULAR VOLUME 83 fL (80-100); MONOCYTES # (AUTO) 0.5 K/uL (0.1-1.0); MONOCYTES % (AUTO) 6.2 % (2.0-9.0); NEUTROPHILS # (AUTO) 6.7 K/uL (1.8-7.7); NEUTROPHILS % (AUTO) 77.3 % (40.0-70.0); PLATELET COUNT (AUTO) 362 K/uL (150-450); RED BLOOD CELL COUNT(AUTO) 4.45 MIL/uL (4.50-5.90)
[2021-10-01 20:23] LABS: COVID AG,FIA SOURCE NASOPHARYNGEAL
[2021-10-01 20:23] LABS: ANION GAP 10 mmol/L (8-16); CALCIUM, TOTAL 8.4 mg/dL (8.8-10.5); CARBON DIOXIDE 27 mmol/L (22-29); CHLORIDE 104 mmol/L (98-107); CREATININE 1.07 mg/dL (0.60-1.30); GLOMERULAR FILTR. RATE CALC > 60 mL/min (>60); GLUCOSE,RANDOM 119 mg/dL (70-110); POTASSIUM 3.9 mmol/L (3.5-5.1); SODIUM SERUM 141 mmol/L (136-145); UREA NITROGEN, BLOOD 21 mg/dL (7-18)
[2021-10-01 20:29] LABS: ALANINE AMINOTRANSFERASE 27 U/L (12-78); ALBUMIN 3.7 g/dL (3.4-5.0); ALKALINE PHOSPHATASE 68 U/L (46-116); ASPARTATE AMINOTRANSFERASE 20 U/L (15-37); BILIRUBIN,TOTAL 0.6 mg/dL (0.1-1.0); TOTAL PROTEIN, SERUM 7.4 g/dL (6.4-8.2); VALPROIC ACID 3 mcg/mL (50-100)
[2021-10-01] MEDS ORDERED: LORazepam 1 MG TABLET PO ONE (20:30)
[2021-10-02 05:33] VITALS: BP 127/79
== END 2021-10-02 05:44 | disposition home or self-care (01) ==
LOC: EMS 19:32
DX: F15.10 Other stimulant abuse, uncomplicated (principal); F20.9 Schizophrenia, unspecified; F14.90 Cocaine use, unspecified, uncomplicated; F17.210 Nicotine dependence, cigarettes, uncomplicated; Z79.899 Other long term (current) drug therapy; Z20.822 Contact with and (suspected) exposure to COVID-19
CPT/HCPCS: 36415; 80053; 80164; 85025; 87426; 99285; G0480

== ENCOUNTER 2022-09-17 20:53 | Emergency (ER) | payer MEDICAID ==
[~2022-09-17 20:53] MED LIST changes: -DIVA-80 PO; +DIVA500T53 PO
== END 2022-09-17 22:30 | disposition left against medical advice (07) ==
LOC: EMS 20:56
DX: Z53.21 Procedure and treatment not carried out due to patient leaving prior to being seen by health care provider (principal)
CPT/HCPCS: 99281; Z7502